=== PATIENT | male | born 1980 | race Caucasian/White ===

== ENCOUNTER 2016-07-12 07:16 | Outpatient (CLI) | payer OTHER ==
[2015-02-15 00:54] VITALS: BMI 35.2
--- NOTE | 2016-07-12 08:23 | US ---
EXAM: Ultrasound of the right upper quadrant. HISTORY: Fatty changes of liver. COMPARISON: 07/13/2015 ultrasound, 02/15/2015 CT. TECHNIQUE: Shields scale, color and doppler ultrasound evaluation of the right upper quadrant. FINDINGS: The pancreas is hyperechoic compatible with the mild fatty atrophy seen on prior CT. The liver demonstrates diffusely increased echogenicity. Evaluation of the liver is limited due shad owing extending through much of the liver. Hepatopetal flow is seen within the portal vein. The gallbladder is not abnormally distended. Gallstones are seen. No abnormal gallbladder wall thi ckening or pericholecystic fluid is identified. The proximal common bile duct measures 7 mm. The right kidney measures 11.9 x 6.2 x 4.2 cm. The inferior pole of the right kidney is partially ob scured. No hydronephrosis or discrete renal masses are visualized. IMPRESSION: Fatty infiltration of the liver. Cholelithiasis without sonographic evidence of acute cholecystitis. Borderline dilation of the common bile duct to 7 mm.
== END 2016-07-12 07:17 | disposition home or self-care (01) ==
LOC: RAD 07:16
PROVIDERS: ATTEND Nurse Practitioner Family
DX: K76.0 Fatty (change of) liver, not elsewhere classified (principal)

== ENCOUNTER 2016-10-08 08:43 | Outpatient (CLI) ==
[2015-02-15 00:54] VITALS: BMI 35.2
[2016-10-08 09:37] LABS: ALBUMIN/GLOBULIN RATIO 1.25; ANION GAP 12.9; BILIRUBIN,TOTAL 0.81 mg/dL (0.00-1.20); BUN/CREATININE RATIO 13.79; CALCIUM 9.1 mg/dL (8.2-10.2); CHOL/HDL RATIO 6.8 (4.5-6.4); CREATININE 0.87 mg/dL (0.60-1.10); POTASSIUM 3.9 mmol/L (3.5-5.1); TOTAL PROTEIN 7.2 g/dL (6.4-8.2)
== END 2016-10-08 08:44 | disposition home or self-care (01) ==
LOC: LAB 08:43
PROVIDERS: ATTEND Nurse Practitioner Family
DX: R73.9 Hyperglycemia, unspecified (principal); I10 Essential (primary) hypertension; E78.5 Hyperlipidemia, unspecified
CPT/HCPCS: 36415; 80053; 80061; 83036; 84443

== ENCOUNTER 2016-12-31 08:53 | Outpatient (CLI) ==
[2015-02-15 00:54] VITALS: BMI 35.2
[2016-12-31 09:13] LABS: BASOPHILS % (AUTO) 0.7 % (0.0-3.0); EOSINOPHILS # (AUTO) 0.2 K/ul (0.0-0.7); EOSINOPHILS % (AUTO) 3.9 % (0.0-7.0); HEMATOCRIT 45.6 % (42.0-52.0); HEMOGLOBIN 16.2 g/dl (14.0-18.0); IMMATURE GRANULOCYTE % (AUTO) 0.5 % (0.0-5.0); LYMPHOCYTES # (AUTO) 1.9 K/uL (0.60-3.4); LYMPHOCYTES % (AUTO) 43.1 (10.0-50.0); MEAN CORPUSCULAR HEMOGLOBIN 29.3 pg (27.0-31.0); MEAN CORPUSCULAR HGB CONC 35.5 (31.8-35.4); MEAN CORPUSCULAR VOLUME 82.5 fl (80.0-94.0); MONOCYTES # (AUTO) 0.2 K/uL (0.4-2.0); NEUTROPHILS # (AUTO) 2.1 K/ul (2.0-6.9); NEUTROPHILS % (AUTO) 46.8; PLATELET COUNT 165 10^3/uL (140-440); RED BLOOD COUNT 5.53 10^6/ul (4.70-6.10); WHITE BLOOD COUNT 4.41 K/ul (4.2-10.2)
[2016-12-31 09:29] LABS: ALBUMIN/GLOBULIN RATIO 1.21; ANION GAP 14.1; BILIRUBIN,TOTAL 0.82 mg/dL (0.00-1.20); BUN/CREATININE RATIO 15.78; CALCIUM 9.6 mg/dL (8.2-10.2); CHOL/HDL RATIO 6.2 (4.5-6.4); CREATININE 0.76 mg/dL (0.60-1.10); POTASSIUM 4.1 mmol/L (3.5-5.1); TOTAL PROTEIN 7.3 g/dL (6.4-8.2)
== END 2016-12-31 08:54 | disposition home or self-care (01) ==
LOC: LAB 08:53
PROVIDERS: ATTEND Nurse Practitioner Family
DX: E11.9 Type 2 diabetes mellitus without complications (principal); I10 Essential (primary) hypertension; E78.5 Hyperlipidemia, unspecified
CPT/HCPCS: 36415; 80053; 80061; 83036; 85025

== ENCOUNTER 2017-04-14 09:56 | Outpatient (CLI) ==
[2015-02-15 00:54] VITALS: BMI 35.2
[2017-04-14 10:37] LABS: ALBUMIN 4.1 g/dL (3.4-5.0); ALBUMIN/GLOBULIN RATIO 0.98; ANION GAP 17.1; BILIRUBIN,TOTAL 0.65 mg/dL (0.00-1.20); BUN/CREATININE RATIO 13.58; CALCIUM 9.6 mg/dL (8.2-10.2); CHOL/HDL RATIO 5.8 (4.5-6.4); CREATININE 0.81 mg/dL (0.60-1.10); POTASSIUM 4.1 mmol/L (3.5-5.1); TOTAL PROTEIN 8.3 g/dL (6.4-8.2)
== END 2017-04-14 09:57 | disposition home or self-care (01) ==
LOC: LAB 09:56
PROVIDERS: ATTEND Nurse Practitioner Family
DX: E78.5 Hyperlipidemia, unspecified (principal); E11.9 Type 2 diabetes mellitus without complications; I10 Essential (primary) hypertension
CPT/HCPCS: 36415; 80053; 80061; 83036

== ENCOUNTER 2017-06-18 14:17 | Emergency (ER) ==
[2017-06-18 14:24] VITALS: BP 149/93; TEMP 99.6; BMI 38.6
--- NOTE | 2017-06-18 15:25 | US ---
EXAM: Testicular ultrasound HISTORY: Scrotal edema and swelling for 1 week with no injury COMPARISON: Ultrasound testicle 07/31/2012 TECHNIQUE: Sonographic and Doppler evaluation of the testicles were performed. FINDINGS: The right testicle measures 7.4 x 4.4 x 3.9 cm. The epididymis is normal in appearance. There is no varicocele, hydrocele or mass. There is normal color Doppler flow without signs of torsi on. There is scrotal wall thickening measuring 3.3 cm in thickness. The left testicle measures 6.4 x 4.8 x 3.1 cm. The epididymis is normal in appearance. There is no varicocele, hydrocele or mass. There is normal color Doppler flow without signs of torsion. There is scrotal wall thickening measuring 2.3 cm. IMPRESSION: Thickening of the scrotal wall consistent with edema versus inflammation/infection.
--- NOTE | 2017-06-18 17:30 | ED.PDOC ---
General ED Provider: Dr. ZELDA HARDIN Chief Complaint: Penile Problem Stated Complaint: SCROTAL EDEMA Time Seen by Physician: 14:20 (SEEN WITH STAFF AT ALL TIMES ) Mode of Arrival: Walk-In Information Source: Patient, Family Exam Limitations: No limitations Primary Care Provider: [facility] Nursing and Triage Documentation Reviewed and Agree: Yes Reviewed sepsis parameters & appropriate labs ordered?: Yes System Inflammatory Response Syndrome: Not Applicable Sepsis Protocol: For patient's 13 years and over: Temp is 96.8 and below OR 101 and greater Pulse >90 BPM Resp >20/minute Acutely Altered Mental Status Are patient's symptoms suggestive of a new infection, such as: -Pneumonia -Skin, Soft Tissue -Endocarditis -UTI -Bone, Joint Infection -Implantable Device -Acute Abdominal Infection -Wound Infection -Meningitis -Blood Stream Catheter Infection -Unknown System Inflammatory Response Syndrome: Not Applicable Complaint Exam - Complaint/Exam Patient Complains of: Reports: Scrotal swelling Onset/Duration: 1 WEEK MOTHER NOTICED IT TODAY PT HAS HAD SAME ISSUE BEFORE Symptoms Are: Still present Timing: Constant Episodes of Voiding Over Last 12 Hours: 5 Initial Severity: Severe Current Severity: Severe Location of Pain: Reports: Scrotum Aggravating: Reports: Straining Alleviating: Reports: Scrotal elevation Associated Signs and Symptoms: Reports: Scrotal swelling. Denies: Diaphoresis, Back pain, Fever, Hematuria, Dysuria, Constipation, Blood in stool, Rectal pain , Appetite change, Nausea, Vomiting, Penile swelling, Penile discharge, Decreased urine output, Increased urine frequency, Increased thirst, Decreased activity, Lethargy, Scrotal pain, Abdominal Pain Testicular Torsion Risk Factors: Reports: None Surgical Obstruction Risk Factors: Reports: None Related Surgical History: Reports: None Abdominal Findings: Present: None Genitalia Exam: Present: Scrotal swelling Differential Diagnoses: Other Review of Systems - Review Of Systems Constitutional: Reports: No symptoms Eyes: Reports: No symptoms Ears, Nose, Mouth, Throat: Reports: No symptoms Respiratory: Reports: No symptoms Cardiac: Reports: No symptoms GI: Reports: No symptoms : Reports: Other (SCROTAL EDEMA ) Musculoskeletal: Reports: No symptoms Skin: Reports: No symptoms Neurological: Reports: No symptoms Endocrine: Reports: No symptoms Hematologic/Lymphatic: Reports: No symptoms All Other Systems: Reviewed and Negative Past Medical History - Past Medical History Previously Healthy: Yes Endocrine: Reports: None Cardiovascular: Reports: Hypertension Respiratory: Reports: None Hematological: Reports: None Gastrointestinal: Reports: None Genitourinary: Reports: Other (SCROTAL EDEMA ) Neuro/Psych: Reports: None Musculoskeletal: Reports: None Cancer: Reports: None - Surgical History General Surgical History: Reports: Unknown - Family History Family History: Reports: Unknown - Social History Smoking Status: Never smoker Hx Substance Use: No Alcohol Screening: None Physical Exam - Physical Exam Appearance: Well-appearing, No pain distress, Well-nourished Eyes: SERENITY, EOMI, Conjunctiva clear ENT: Ears normal, Nose normal, Oropharynx normal Respiratory: Airway patent, Breath sounds clear, Breath sounds equal, Respirations nonlabored Cardiovascular: RRR, Pulses normal, No rub, No murmur GI/: Bowel sounds normal (SCROTAL EDEMA ) Musculoskeletal: Normal strength, ROM intact, No edema, No calf tenderness Skin: Warm, Dry, Normal color Neurological: Sensation intact, Motor intact, Reflexes intact, Cranial nerves intact, Alert, Oriented Psychiatric: Affect appropriate, Mood appropriate Critical Care Note - Critical Care Note Total Time (mins): 0 Course - Course Hematology/Chemistry: 06/18/17 15:10 06/18/17 15:10 Orders, Labs, Meds: Lab Review 06/18/17 06/18/17 06/18/17 15:00 15:10 15:10 WBC 11.41 H RBC 4.74 Hgb 14.1 Hct 39.1 L MCV 82.5 MCH 29.7 MCHC 36.1 H RDW Coeff of [place] 12.6 Plt Count 150 Immature Gran % (Auto) 0.4 Neut % (Auto) 70.0 Lymph % (Auto) 21.3 [place] % (Auto) 7.4 Eos % (Auto) 0.6 Baso % (Auto) 0.3 Immature Gran # (Auto) 0.0 Neut # 8.0 H Lymph # 2.4 [place] # 0.9 Eos # 0.1 Baso # 0.0 Sodium 138 Potassium 4.0 Chloride 102 Carbon Dioxide 25 Anion Gap 15.0 BUN 13 Creatinine 0.82 Estimated GFR (MDRD) 105.00 BUN/Creatinine Ratio 15.85 Glucose 97 Calcium 9.4 Total Bilirubin 1.1 AST 26 ALT 37 Alkaline Phosphatase 62 Total Protein 7.6 Albumin 3.5 Globulin 4.1 Albumin/Globulin Ratio 0.85 Urine Color [place] Urine Clarity Clear Urine pH 5.5 Ur Specific [place] >=1.030 Urine Protein Trace Urine Glucose (UA) Negative Urine Ketones Negative Urine Blood Negative Urine Nitrite Negative Urine Bilirubin Negative Urine Urobilinogen 0.2 Ur Leukocyte Esterase Negative Urine Microscopic WBC 0-2 Ur Squamous Epith Cells 0-2 Amorphous Sediment Trace Urine Mucus 2+ Orders Category Date Time Status CBC W/ AUTO DIFF Stat LAB 06/18/17 15:10 Completed COMPREHENSIVE METABOLIC PANEL Stat LAB 06/18/17 15:10 Completed URINALYSIS C & S IF INDICATED Stat LAB 06/18/17 15:00 Completed ULTRASOUND SCROTUM [U/S SCROTUM] Stat RADS 06/18/17 14:42 Completed Vital Signs: Temp Pulse Resp BP Pulse Ox 06/18/17 14:17 99.6 F 101 H 20 149/93 H 98 Departure - Departure Time of Disposition: 17:31 (CALLS WERE PLACED TO SEVERAL [employer] MEAN WHILE CRITICAL PT'S ARRIVED PT STATED DUE TO WAIT HE WOULD LIKE TO LEAVE AND NOT TO WAIT. NENO FERNÁNDEZ PRESENT AT ALL TIMES PT'S MOTHER MADE THIS DECISION FOR THE PT ) Disposition: AMA Discharge Problem: Edema of scrotum Instructions: Hydrocele (ED) Condition: Good Pt referred to PMD for follow-up: No IPMP verified?: No Additional Instructions: Please call your Family Physician as soon as possible to schedule a follow-up appointment. Allergies/Adverse Reactions: Allergies No Known Allergies Allergy (Verified 06/18/17 14:26) Home Medications: Ambulatory Orders [place]-3 Fatty Acids/Fish Oil [Fish Oil 1,000 Mg Capsule] 1 each PO DAILY Disposition Discussed With: Patient, Family
== END 2017-06-18 18:00 | disposition left against medical advice (07) ==
LOC: ED 14:17
DX: N50.89 Other specified disorders of the male genital organs (principal)
CPT/HCPCS: 36415; 80053; 81001; 85025; 99284

== ENCOUNTER 2017-07-14 09:43 | Outpatient (CLI) | END 2017-07-14 09:44 | disposition home or self-care (01) | LOC: LAB 09:43 | PROVIDERS: ATTEND Emergency Medicine | DX: E78.5 Hyperlipidemia, unspecified (principal); I10 Essential (primary) hypertension | CPT/HCPCS: 36415; 80053; 80061; 85025 ==

== ENCOUNTER 2018-01-12 08:26 | Outpatient (CLI) | END 2018-01-12 08:27 | disposition home or self-care (01) | LOC: LAB 08:26 | PROVIDERS: ATTEND Nurse Practitioner Family | DX: E11.9 Type 2 diabetes mellitus without complications (principal); E78.5 Hyperlipidemia, unspecified; I10 Essential (primary) hypertension | CPT/HCPCS: 36415; 80053; 80061; 83036 ==

== ENCOUNTER 2018-05-09 14:23 | Outpatient (CLI) | payer OTHER | END 2018-05-09 14:24 | disposition home or self-care (01) | LOC: CAR 14:23 | PROVIDERS: ATTEND Psychiatry & Neurology Sleep Medicine | DX: G47.30 Sleep apnea, unspecified (principal) | CPT/HCPCS: 95811 ==

== ENCOUNTER 2018-08-24 08:08 | Outpatient (CLI) | END 2018-08-24 08:09 | disposition home or self-care (01) | LOC: LAB 08:08 | PROVIDERS: ATTEND Nurse Practitioner Family | DX: I10 Essential (primary) hypertension (principal); E11.9 Type 2 diabetes mellitus without complications; E78.5 Hyperlipidemia, unspecified; G47.30 Sleep apnea, unspecified | CPT/HCPCS: 36415; 80053; 80061; 83036; 84443; 85025 ==